=== PATIENT | female | born 1950 | race Caucasian/White ===

== ENCOUNTER 2019-07-18 13:29 | Outpatient (CLI) | payer MEDICARE, OTHER, SELFPAY ==
--- NOTE | 2019-07-18 20:14 | ONC CON_ITS ---
Dr. Rose New Patient Note Patient: Jesenia Tripathi Unit #: [id number]: [id number] Dicatated By: Laith Rose M.D.Date of Visit: Jul 18, 2019 Onc MED New Patient/Consult Referring Physician: Chief Complaint: Breast cancer. History of Present Illness: This is a 68 year-old woman with grade 1 invasive ductal carcinoma of the right breast, by clinical evaluation stage IA, ER/WA positive and HER-2/teo negative. She has multiple medical illnesses including hypertension, hyperlipidemia, peripheral arterial disease, and COPD. She had presented with an abnormal screening mammogram of the right breast. A unilateral right diagnostic mammogram with additional views of the right breast on 05/01/2019 was BI-RADS 4, suspicious. Findings included a very small persistent focal asymmetry at the upper inner right breast. Ultrasound showed a 4 mm hypoechoic lesion. Biopsy was recommended. She was referred to Dr. Brand and on 05/22/2019 she underwent ultrasound directed needle core biopsy of the right breast lesion. Pathology showed grade 1 invasive ductal carcinoma measuring 4 mm. There was no associated DCIS. The margins were noted to be free of tumor. The breast prognostic profile showed ER positive at 86% and WA positive at 47%. It was negative for overexpression of HER-2/teo, 0+ by IHC and amplification ratio by FISH of 0.9 with 1.9 HER-2 copies/cell. The Ki-67 was favorable at 9%. Given her age, underlying medical illnesses, the small size of the tumor, and the favorable prognostic and with a clinically negative axilla, she was recommended to undergo lumpectomy without axillary lymph node sampling. She then underwent right breast quandrantectomy on 06/12/2019. Pathology showed no residual tumor. Following the surgery she was seen by a medical oncologist in [place], and she was recommended to have an axillary sentinel lymph node biopsy. As she is not enthusiastic about having any additional surgery, she is being seen here for a second opinion. She has been feeling good. She says her energy is fine. She professes to have normal activity. Her ECOG score is 0. Her appetite had been down last year, during which time she had a weight loss of 60 pounds. She eventually was found to have bleeding gastric ulcer and required PRBC transfusion. She has since then improved on medical therapy. She has not had fever. She does report having some hot flashes and sweating at night. She has shortness of breath with activity. She has just a little cough which occasionally is productive of white sputum. She has not been having chest pain. She recurrently has no GI or complaints. She reports having a history of rheumatoid arthritis, and she does have some joint pain, though it is managed adequately with tramadol. She also has degenerative disease of the spine with neck and back pain. She complains that her feet hurt. She has no headache or dizziness and she has no focal neurologic symptoms. Past Medical History: Her medical history includes atrophic left kidney, chronic kidney disease, COPD, degenerative disease of the spine, history of thyroid cancer, hyperlipidemia, hypertension, peptic ulcer disease with GI bleeding, peripheral arterial disease, renal artery stenosis, and rheumatoid arthritis. Past Surgical History: She underwent ultrasound-guided core needle biopsy of the right breast on 05/22/2019 and she underwent right breast quadrantectomy on 06/22/2019. 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 Medications: Bystolic 1 Tablet (of 10 mg) Oral daily, Carafate 10 mL (of 1 g/10mL) Suspension Oral at bedtime, cloNIDine HCl 1 Tablet (of 0.1 mg) Oral t.i.d., Clopidogrel Bisulfate 1 Tablet (of 75 mg) Oral daily, Co Q 10 1 Capsule (of 100 mg) Oral daily, hydrALAZINE HCl 1 Tablet (of 50 mg) Oral t.i.d., Levothyroxine Sodium 1 Tablet (of 150 mcg) Oral daily, Magnesium 1 Tablet (of 400 mg) Oral daily, Olmesartan Medoxomil 1 Tablet (of 20 mg) Oral daily, Pantoprazole Sodium 1 Tablet (of 40 mg) Tablet, enteric coated Oral b.i.d., Potassium Chloride Qian ER 1 Tablet (of 20 meq) Tablet, controlled release Oral b.i.d., Rosuvastatin Calcium 1 Tablet (of 20 mg) Oral daily, Spironolactone 1 Tablet (of 25 mg) Oral daily, traMADol HCl 1 Tablet (of 50 mg) Oral daily Allergies: keflex Social History: Ms. Tripathi is and she is retired. She has a history of smoking 1 pack of cigarettes daily for 60 years. She does not drink alcohol. She had some alcohol use in the past, but she quit years ago. Family History: Father of stroke at age 67. Mother had heart disease and strokes and at age 83. A brother of lung cancer at age 57 and another brother of colon cancer at age 58. A brother at age 59 with a cardiac aneurysm. He also have been treated for mouth cancer. A fourth brother also had a cardiac aneurysm and of stroke. A sister with a heart aneurysm at age 58. Review Of Symptoms: Constitutional - Her energy is good. She has normal activity. She had a bleeding ulcer last year which caused her to lose 60 pounds. Her appetite is good. No fever or chills. She has hot flashes and sweating at night. ECOG score is 0, Eyes - She had a squamous cell cancer on her left eye that was removed last year. Her vision improved following the surgery, ENMT - No hearing loss or tinnitus. She occasionally has sinus drainage. No mouth sores. No sore throat or difficulty swallowing, Hematologic/Lymphatic - She bruises easily, Respiratory - She has some shortness of breath with activity. She has a cough that produces white phlegm. No pleuritic pain or hemoptysis, Cardiovascular - No angina pain. No palpitations, Gastrointestinal - No nausea or vomiting. No heartburn or acid reflux. No diarrhea or constipation. She had a bleeding ulcer last year. No blood in the stool or black stools, Genitourinary (F) - No dysuria or hematuria. No urinary frequency. No urgency or incontinence, Musculoskeletal - She has rheumatoid arthritis. She has some joint pain, particulary in her feet, and she has pain in her neck and back. It is managed pretty well with tramadol. She has cramping in her legs and feet at night when she relaxes, Integumentary - No skin complications, Neurologic - No headache or dizziness. No numbness/paresthesias or other focal neurologic symptoms, Psychiatric - No anxiety or depression. No insomnia. Vital Signs: Performed on Jul 18, 2019 14:14: 0, 24.30, 1.80 sq.m, 66.75 in, 97 %, 59 /min (LOW), 18 /min, 179/60 mm(hg) (HIGH), 98.0 F (LOW), and 154.0 lbs (HIGH). Physical Examination: Constitutional - She looks pretty good generally, Eyes - Sclerae nonicteric. Conjunctivae clear, ENMT - No lesions noted in the oral cavity, Neck - No mass or thyromegaly, Hematologic/Lymphatic - No cervical or clavicular adenopathy, Respiratory - Lungs show diminished air movement bilaterally. She has slight expiratory wheezing, Cardiovascular - Heart rhythm is regular. There is a II/ systolic no murmur which is loudest at the apex. There is no gallop or rub noted. There are bilateral carotid bruits, Breasts - The incision in the upper medial right breast appears well-healed. There are no breast masses noted. There is no axillary adenopathy, Abdomen - Soft and non-tender. Liver and spleen are not enlarged. There is no abdominal mass or ascites noted and there is no inguinal adenopathy, Back/Spine - No spine or CVA tenderness noted, Extremities - Mild edema. Dorsalis pedis pulses are palpable bilaterally, Integumentary - No rashes. No suspicious skin lesions noted, Neurologic - No focal neurologic deficits noted. Lab/Imaging: Her DEXA scan on 07/13/2019 showed osteopenia with T score -2.2 in the left femoral neck and T score -1.5 in the right femoral neck. Impression: 1. Patient with grade 1 invasive ductal carcinoma of the right breast, by clinical evaluation stage IA (T1a, N0, M0), ER/WA positive and HER-2/teo negative. 2. She underwent core needle biopsy of the right breast on 05/22/2019 followed by right breast quadrantectomy on 06/12/2019. The latter showed no residual tumor. Axillary node sampling was not recommended. Her other medical illnesses include: 3. Hypertension. 4. Hyperlipidemia. 5. Chronic kidney disease. 6. She has undergone endovascular repair of abdominal aortic aneurysm and right renal artery stent placement. 7. She has bilateral carotid bruits. 8. COPD. 9. Peptic ulcer disease wtih associated GI bleeding. 10. Rheumatoid arthritis. 11. Degenerative disease of the spine. 12. She has an atrophic left kidney. 13. She has a history of thyroid cancer. Plan: I reviewed the pathology with the patient and her . We discussed the fact that the standard initial treatment for breast cancer would include axillary lymph node sampling, but it has been pretty well accepted that in elderly patients with early stage and favorable prognostic disease, lumpectomy alone and adjuvant hormonal therapy is an acceptable alternative. Although her age really does not put her into that category, with the very small size of her primary tumor and in the context of her underlying medical illnesses, I think it is a very reasonable option for her. I also reviewed options for adjuvant hormonal therapy and their associated side effects. With her underlying vascular disease, treatment with an aromatase inhibitor would be preferable, though she is advised that it will have the potential to cause joint pain and/or osteoporosis. As she does have significant osteopenia by DEXA scan, she will require treatment for bone health. I will go ahead and have her start anastrozole 1 mg daily, and she also will be started on Prolia injections, subject to verification of insurance coverage. I will check baseline laboratory studies including CBC, comprehensive metabolic profile, and 25-hydroxy vitamin D level when she comes in for her first Prolia injection. She will then be scheduled for a 3-month interval follow-up visit. Signed By: Laith Rose M.D. <<Signature on File>>
== END 2019-07-18 13:30 | disposition home or self-care (01) ==
LOC: ONCMED 13:33
PROVIDERS: Family Provider Student in an Organized Health Care Education/Training Program; PCP Internal Medicine; Visit Provider Internal Medicine Medical Oncology
DX: C50.211 Malignant neoplasm of upper-inner quadrant of right female breast (principal); I10 Essential (primary) hypertension; E78.5 Hyperlipidemia, unspecified; I73.9 Peripheral vascular disease, unspecified; J44.9 Chronic obstructive pulmonary disease, unspecified; M06.9 Rheumatoid arthritis, unspecified; M19.90 Unspecified osteoarthritis, unspecified site; I12.9 Hypertensive chronic kidney disease with stage 1 through stage 4 chronic kidney disease, or unspecified chronic kidney disease; N18.9 Chronic kidney disease, unspecified; I70.1 Atherosclerosis of renal artery; E89.0 Postprocedural hypothyroidism; Z17.0 Estrogen receptor positive status [ER+]; Z79.811 Long term (current) use of aromatase inhibitors; Z79.899 Other long term (current) drug therapy; Z85.850 Personal history of malignant neoplasm of thyroid; Z87.11 Personal history of peptic ulcer disease; Z98.890 Other specified postprocedural states; Z85.828 Personal history of other malignant neoplasm of skin; Z87.891 Personal history of nicotine dependence
CPT/HCPCS: 99205

== ENCOUNTER 2019-08-02 13:21 | Outpatient (CLI) | payer MEDICARE, OTHER, SELFPAY ==
[2019-08-02 13:57] LABS: Basophils % 0.6 %; Eosinophils # 0.3 10^3/uL (0.0-0.8); Eosinophils % 3.9 %; Hematocrit 41.9 % (37.0-47.0); Hemoglobin 13.2 g/dL (11.5-15.3); Lymphocytes # 2.4 10^3/uL (0.8-4.8); Lymphocytes % 37.7 %; Mean Corpuscular HGB Conc 31.5 g/dL (30.0-36.0); Mean Corpuscular Hemoglobin 29.3 pg (28.0-34.0); Mean Corpuscular Volume 92.9 fL (81-99); Mean Platelet Volume 11.2 fL (7.4-10.4); Monocytes # 0.5 10^3/uL (0.2-0.9); Neutrophils # 3.1 10^3/uL (1.8-7.7); Neutrophils % 49.5 %; Nucleated Red Blood Cells % 0 %; Platelet Count 194 10^3/cmm (130-400); Red Blood Count 4.51 10^6/uL (4.1-5.3); Red Cell Distribution Width 13.9 % (12.1-15.1); White Blood Count 6.3 10^3/uL (4.0-10.0)
[2019-08-02 14:16] LABS: Alanine Aminotransferase 17 U/L (0-33); Albumin Level 3.9 g/dL (3.5-5.2); Alkaline Phosphatase 105 IU/L (35-105); Anion Gap 17.4 (5-19); Aspartate Amino Transferase 19 U/L (0-32); Blood Urea Nitrogen 19 mg/dL (8-23); Calcium 10.2 mg/dL (8.5-10.5); Carbon Dioxide 27 mmol/L (22-29); Chloride 102 mmol/L (98-107); Globulin 3.2 g/dL (1.3-4.6); Glomerular Filtration Rate 34.3 mL/min (90-130); Glucose 136 mg/dL (74-106); Potassium 4.4 mmol/L (3.5-5.1); Sodium 142 mmol/L (136-145); Total Bilirubin 0.4 mg/dL (0.15-1.2); Total Protein 7.1 g/dL (6.6-8.7)
[2019-08-02] MEDS: denosumab 60 mg SDV SUBCUT (14:25)
[2019-08-02 14:32] LABS: 25 Hydroxy Vitamin D 42 ng/mL (30-100)
== END 2019-08-02 13:22 | disposition home or self-care (01) ==
LOC: ONCMED 13:28
PROVIDERS: Family Provider Student in an Organized Health Care Education/Training Program; PCP Internal Medicine; Visit Provider Internal Medicine Medical Oncology
DX: M81.0 Age-related osteoporosis without current pathological fracture (principal); C50.211 Malignant neoplasm of upper-inner quadrant of right female breast; Z17.0 Estrogen receptor positive status [ER+]
CPT/HCPCS: 36415; 80053; 82306; 85025; 96372; J0897

== ENCOUNTER 2020-01-31 12:18 | Outpatient (CLI) | payer MEDICARE, OTHER, SELFPAY ==
[2020-01-31 12:52] LABS: Basophils % 0.5 %; Eosinophils # 0.4 10^3/uL (0.0-0.8); Hematocrit 44.2 % (37.0-47.0); Lymphocytes # 2.6 10^3/uL (0.8-4.8); Lymphocytes % 34.5 %; Mean Corpuscular HGB Conc 31.7 g/dL (30.0-36.0); Mean Corpuscular Hemoglobin 30.4 pg (28.0-34.0); Mean Corpuscular Volume 95.9 fL (81-99); Mean Platelet Volume 11.1 fL (7.4-10.4); Monocytes # 0.6 10^3/uL (0.2-0.9); Monocytes % 7.4 %; Neutrophils # 3.94 10^3/uL (1.8-7.7); Neutrophils % 52.3 %; Nucleated Red Blood Cells % 0 %; Platelet Count 167 10^3/cmm (130-400); Red Blood Count 4.61 10^6/uL (4.1-5.3); Red Cell Distribution Width 13.8 % (12.1-15.1); White Blood Count 7.5 10^3/uL (4.0-10.0)
[2020-01-31 13:26] LABS: 25 Hydroxy Vitamin D 50 ng/mL (30-100); Alanine Aminotransferase 17 U/L (0-33); Albumin Level 4.4 g/dL (3.5-5.2); Alkaline Phosphatase 68 IU/L (35-105); Anion Gap 14.4 (5-19); Aspartate Amino Transferase 21 U/L (0-32); Blood Urea Nitrogen 22 mg/dL (8-23); Calcium 9.5 mg/dL (8.5-10.5); Carbon Dioxide 26 mmol/L (22-29); Chloride 104 mmol/L (98-107); Globulin 2.9 g/dL (1.3-4.6); Glucose 119 mg/dL (65-115); Osmolality Calculated 288 mOsm/kg (285-295); Potassium 4.4 mmol/L (3.5-5.1); Sodium 140 mmol/L (136-145); Total Bilirubin 0.5 mg/dL (0.15-1.2); Total Protein 7.3 g/dL (6.6-8.7)
--- NOTE | 2020-02-06 16:32 | ONC FU_ITS ---
[facility] Patient Note Patient: Jesenia Tripathi Unit #: [id number]: [id number] Dictated By: Orin CotaDate of Visit: Jan 31, 2020 Onc MED Follow-Up/Prog Note Chief Complaint: Breast cancer. History of Present Illness: Mrs Tripathi is a 69 year-old woman with grade 1 invasive ductal carcinoma of the right breast, by clinical evaluation stage IA, ER/OR positive and HER-2/teo negative. She has multiple medical illnesses including hypertension, hyperlipidemia, peripheral arterial disease, and COPD. She had presented with an abnormal screening mammogram of the right breast. A unilateral right diagnostic mammogram with additional views of the right breast on 05/01/2019 was BI-RADS 4, suspicious. Findings included a very small persistent focal asymmetry at the upper inner right breast. Ultrasound showed a 4 mm hypoechoic lesion. Biopsy was recommended. She was referred to Dr. Brand and on 05/22/2019 she underwent ultrasound directed needle core biopsy of the right breast lesion. Pathology showed grade 1 invasive ductal carcinoma measuring 4 mm. There was no associated DCIS. The margins were noted to be free of tumor. The breast prognostic profile showed ER positive at 86% and OR positive at 47%. It was negative for overexpression of HER-2/teo, 0+ by IHC and amplification ratio by FISH of 0.9 with 1.9 HER-2 copies/cell. The Ki-67 was favorable at 9%. Given her age, underlying medical illnesses, the small size of the tumor, and the favorable prognostic and with a clinically negative axilla, she was recommended to undergo lumpectomy without axillary lymph node sampling. She then underwent right breast quandrantectomy on 06/12/2019. Pathology showed no residual tumor. Following the surgery she was seen by a medical oncologist in [place], and she was recommended to have an axillary sentinel lymph node biopsy. As she is not enthusiastic about having any additional surgery, she is being seen here for a second opinion. Her appetite had been down last year, during which time she had a weight loss of 60 pounds. She eventually was found to have bleeding gastric ulcer and required PRBC transfusion. She has since then improved on medical therapy. Mrs Tripathi is here today for followup. Mrs Tripathi as seen by Dr Rose in July 2019 and was given Prolia 60 mg at that time for osteopenia based on a bone density scan from [facility] on July 16, 2019. It reported femoral neck osteopenia with an average bone mineral density at the left femoral neck at -2.2 of the T score right femoral neck was -1.5 on the T score. The Prolia was given for the osteopenia. She also started anastrozole 1 mg daily. Ms. Tripathi is here today for follow-up. She states overall she is doing ok. She is having some hot flashes and joint pain from the Aromasin but states the joint pain is tolerable. However she states she has had leg/bone pain that is different from the joint pain and significant fatigue over the last several months. She states she still able to do all things she wants to do but is has to rest frequently. She has taken intermittent [id number] pain meds for her leg pain states it helps some but does not relieve the pain completely. She states she is noticed over the last few weeks areas seem to get somewhat better. She denies any fever or chills. She has had no mouth sores sore throat or difficulty swallowing. She denies any new breast concerns. She denies any nausea or vomiting. She denies diarrhea or constipation. She has had no lower extremity edema. Other than the leg pain in the generalized joint pain she denies any other pain. She is had no vision changes. She states other than the bone and joint pain she feels that she is doing extremely well. She does not want to stop the anastrozole at this point because she states the joint pain is tolerable. Her ECOG is 0. Past Medical History: Atrophic left kidney Chronic kidney disease COPD Degenerative disease of the spine History of thyroid cancer Hyperlipidemia Hypertension Peptic ulcer disease with GI bleeding Peripheral arterial disease Renal artery stenosis Rheumatoid arthritis Past Surgical History: Low back surgery in 2004 and in 2010 Total thyroidectomy in 2006 followed by radioactive iodine ablation x 2 Ight breast quadrantectomy in 2019 Ultrasound-guided core needle biopsy of the right breast in 2019 Excision of squamous cell carcinoma from the left eye in 2019 Endovascular repair of abdominal aortic aneurysm and right renal artery stent placement in 2014 Excision of squamous cell skin cancer from the left hand x 2 in 2005 Left great toe surgery in 1997 Tonsillectomy in 1969 Allergies: keflex Medications: Bystolic 1 Tablet (of 10 mg) Oral daily cloNIDine HCl 1 Tablet (of 0.1 mg) Oral t.i.d. Clopidogrel Bisulfate 1 Tablet (of 75 mg) Oral daily Co Q 10 1 Capsule (of 100 mg) Oral daily Fluoroplex 1 Each (of 1 %) Cream Topical b.i.d. PRN hydrALAZINE HCl 1 Tablet (of 50 mg) Oral t.i.d. Levothyroxine Sodium 1 Tablet (of 125 mcg) Oral daily Magnesium 1 Tablet (of 400 mg) Oral daily Olmesartan Medoxomil 1 Tablet (of 20 mg) Oral daily Pantoprazole Sodium 1 Tablet (of 40 mg) Tablet, enteric coated Oral daily Potassium Chloride Qian ER 1 Tablet (of 20 meq) Tablet, controlled release Oral b.i.d. Rosuvastatin Calcium 1 Tablet (of 20 mg) Oral daily Spironolactone 1 Tablet (of 25 mg) Oral daily traMADol HCl 1 Tablet (of 50 mg) Oral daily Family History: Ms. Tripathi's mother at age 83: stroke. Ms. Tripathi's father at age 67: stroke. Ms. Tripathi has 4 brothers: 4 . Ms. Tripathi's first brother's stroke. Another brother's heart aneurysm. Another brother's lung cancer. Another brother's colon cancer. She has 1 sister who is : aneurysm. Father of stroke at age 67. Mother had heart disease and strokes and at age 83. A brother of lung cancer at age 57 and another brother of colon cancer at age 58. A brother at age 59 with a cardiac aneurysm. He also have been treated for mouth cancer. A fourth brother also had a cardiac aneurysm and of stroke. A sister with a heart aneurysm at age 58. Social History: Ms. Tripathi is and she is retired. She is an occasional smoker who has smoked 1.0 pack/day for 60 years. She is a former drinker. She has a history of smoking 1 pack of cigarettes daily for 60 years. She does not drink alcohol. She had some alcohol use in the past, but she quit years ago. Review Of Symptoms: Constitutional Denies fevers, chills, night sweats, excessive fatigue or weight loss. Some hot flashes with anastrozole. Allergic/Immunologic No reactions. Eyes Denies significant visual changes. No diplopia. No amaurosis. ENMT Denies changes in hearing, sore throat, mouth sores, difficulty or changes in swallowing ability, and/or sinus drainage. Hematologic/Lymphatic Denies easy bruising or bleeding. The patient denies any tender or palpable lymph nodes. Breasts no concerns Respiratory Denies dyspnea on exertion, chest pain, cough or hemoptysis. Denies orthopnea. Cardiovascular Denies anginal chest pain, palpitations or orthopnea. Gastrointestinal Denies nausea, vomiting, diarrhea, GI bleeding, or constipation. Denies change in bowel habits and/or stool color, no heartburn or early satiety. Genitourinary (F) No hematuria, hesitancy, incontinence, vaginal bleeding, discharge or other problems with urination. Musculoskeletal Denies swelling or redness. No decreased range of motion. Joint and bone pain-see above. Integumentary Denies chronic rashes, inflammation, ulcerations or skin changes. Neurologic Denies headache, blurred vision, and no areas of focal weakness or numbness. Normal gait. No sensory problems. Psychiatric Denies insomnia, depression, moshe or mood swings. Vital Signs: Performed on Jan 31, 2020 14:29 Height - 66.75 in Weight - 164.6 lbs (HIGH) BSA - 1.86 sq.m BMI - 25.97 Temperature - 97.9 F (LOW) Pulse - 68 /min Respiration - 18 /min BP - 164/84 mm(hg) (HIGH) O2 Sat - 92 % (LOW) Pain - 0,0 - Fully active, able to carry on all predisease activities without restrictions. (ECOG) Physical Examination: Constitutional Alert, oriented, no acute distress. Skin pink, warm and dry. Head Normocephalic; atraumatic. Eyes Conjunctivae and sclerae are clear and without icterus. Pupils are reactive and equal. Neck Supple without masses or thyromegaly. No jugular venous distension. Hematologic/Lymphatic No petechiae or purpura. No tender or palpable lymph nodes in the cervical or supraclavicular areas. Respiratory Lungs are clear to auscultation without rhonchi or wheezing. Cardiovascular Regular rate and rhythm of heart without murmurs,clicks, gallops or rubs. Abdomen Non-tender, non-distended, no masses or ascites. Back/Spine Non-tender to palpation. Extremities No visible deformities, no cyanosis, clubbing or edema. Musculoskeletal No tenderness or swelling, normal range of motion without obvious weakness. Integumentary No rashes or lesions. Neurologic No sensory or motor deficits, normal cerebellar function, normal gait. Psychiatric Alert and oriented times three. Coherent speech. Verbalizes understanding of our discussions today. Laboratory:Test performed on Jan 31, 2020 12:28 Sodium 140 mmol/L Vitamin D (25-Hydroxy), Total 50 ng/mL Potassium 4.4 mmol/L Chloride 104 mmol/L CO2 26 mmol/L Anion Gap 14.4 BUN 22 mg/dL Creatinine 1.4 mg/dL Cr Clearance (Est) 43.44 mL/min Glucose 119 mg/dL Calcium 9.5 mg/dL Protein, Total 7.3 g/dL Albumin 4.4 g/dL Globulin 2.9 g/dL Bilirubin, Total 0.5 mg/dL ALT (SGPT) 17 U/L AST (SGOT) 21 U/L Alkaline Phosphatase 68 IU/L WBC 7.5 10 3/uL RBC 4.61 10 6/uL HGB 14.0 g/dL HCT 44.2 % MCV 95.9 fL MCH 30.4 pg MCHC 31.7 g/dL RDW 13.8 % Platelet Count 167 10 3/cmm MPV 11.1 fL Neutrophils 3.94 10 3/uL Lymphocytes 2.6 10 3/uL Monocytes 0.6 10 3/uL Eosinophils 0.4 10 3/uL Basophils 0.0 10 3/uL Neutrophil % 52.3 % Lymphocyte % 34.5 % Monocyte % 7.4 % Eosinophil % 5.0 % Basophils % 0.5 % NRBC % 0 % Impression: 1. Patient with grade 1 invasive ductal carcinoma of the right breast, by clinical evaluation stage IA (T1a, N0, M0), ER/OR positive and HER-2/teo negative. 2. She underwent core needle biopsy of the right breast on 05/22/2019 followed by right breast quadrantectomy on 06/12/2019. The latter showed no residual tumor. Axillary node sampling was not recommended. Her other medical illnesses include: 3. Hypertension. 4. Hyperlipidemia. 5. Chronic kidney disease. 6. She has undergone endovascular repair of abdominal aortic aneurysm and right renal artery stent placement. 7. She has bilateral carotid bruits. 8. COPD. 9. Peptic ulcer disease wtih associated GI bleeding. 10. Rheumatoid arthritis. 11. Degenerative disease of the spine. 12. She has an atrophic left kidney. 13. She has a history of thyroid cancer. Dr Rose reviewed the pathology with the patient and her . He discussed the fact that the standard initial treatment for breast cancer would include axillary lymph node sampling, but it has been pretty well accepted that in elderly patients with early stage and favorable prognostic disease, lumpectomy alone and adjuvant hormonal therapy is an acceptable alternative. Although her age really does not put her into that category, with the very small size of her primary tumor and in the context of her underlying medical illnesses, Dr Rose decided it was a very reasonable option for her. She began anastrozole 1 mg daily in July 2019. She was given Prolia on 08/02/2019 for osteopenia and high risk medication in the anastrozole as it can worsen the osteopenia. She is here today for 6 month followup and consideration of her Prolia. Plan: 1. Continue anastrozole 1 mg daily. Will need to watch joint pain and hot flashes. 2. She states she does not feel they are bad enough to warrant any medication changes at this time. 3. She is willing to stop the Prolia for now. She states she really feels that this is what is causing her leg/bone pain. She states she is aware of increased risk of osteopenia worsening due to the aromatase inhibitor. However she states the bone pain in her leg and hip area are worse than the pain she felt was coming from the aromatase inhibitor. I have asked her to stop the Prolia for now. She states she thinks she is feeling some better in regards to the bone/joint pain over the last week or 2. Her calcium and vitamin D levels are normal. She is very active in that she does a lot of walking and weightbearing exercise. 4. Labs from today were reviewed in detail discussed with Ms. Tripathi and a copy was given to her. WBC 7.5, hemoglobin is 14, platelets 167,000 neutrophils are 3900. Potassium 4.4 creatinine 1.4 which is improved from July 04 0.5. LFTs are normal alk phos is normal at 68 vitamin D level is 50. 5. We will plan to see her back in 6 months with CBC CMP. We can revisit the Prolia at that time as she will have adequate time to evaluate how she is feeling on the aromatase inhibitor. 6. Ms. Tripathi was instructed to contact us in the interim should questions or problems arise. She was encouraged to let us know if her joint pain or hot flashes worsen to the point where she feels we will change medication or she wants them treated. Signed By: Orin Cota-, AOCNP Laith Rose MD <<Signature on File>>
== END 2020-01-31 12:19 | disposition home or self-care (01) ==
PROVIDERS: PCP Student in an Organized Health Care Education/Training Program; Visit Provider Nurse Practitioner
DX: C50.211 Malignant neoplasm of upper-inner quadrant of right female breast (principal); I10 Essential (primary) hypertension; E78.5 Hyperlipidemia, unspecified; I12.9 Hypertensive chronic kidney disease with stage 1 through stage 4 chronic kidney disease, or unspecified chronic kidney disease; N18.9 Chronic kidney disease, unspecified; J44.9 Chronic obstructive pulmonary disease, unspecified; Z17.0 Estrogen receptor positive status [ER+]; K27.4 Chronic or unspecified peptic ulcer, site unspecified, with hemorrhage; R01.1 Cardiac murmur, unspecified; M48.9 Spondylopathy, unspecified; M06.9 Rheumatoid arthritis, unspecified; M85.80 Other specified disorders of bone density and structure, unspecified site; Z95.828 Presence of other vascular implants and grafts; Z85.850 Personal history of malignant neoplasm of thyroid; Z79.811 Long term (current) use of aromatase inhibitors
CPT/HCPCS: 80053; 82306; 85025; 99214

== ENCOUNTER 2020-07-31 11:04 | Outpatient (CLI) | payer MEDICARE, OTHER, SELFPAY ==
[2020-07-31 11:55] LABS: Basophils % 0.5 %; Eosinophils # 0.2 10^3/uL (0.0-0.8); Hematocrit 35.7 % (37.0-47.0); Hemoglobin 10.8 g/dL (11.5-15.3); Lymphocytes # 1.8 10^3/uL (0.8-4.8); Lymphocytes % 25.2 %; Mean Corpuscular HGB Conc 30.3 g/dL (30.0-36.0); Mean Corpuscular Hemoglobin 28.6 pg (28.0-34.0); Mean Corpuscular Volume 94.4 fL (81-99); Mean Platelet Volume 10.9 fL (7.4-10.4); Monocytes # 0.5 10^3/uL (0.2-0.9); Monocytes % 6.6 %; Neutrophils # 4.71 10^3/uL (1.8-7.7); Neutrophils % 64.4 %; Nucleated Red Blood Cells % 0 %; Platelet Count 231 10^3/cmm (130-400); Red Blood Count 3.78 10^6/uL (4.1-5.3); White Blood Count 7.3 10^3/uL (4.0-10.0)
[2020-07-31 12:25] LABS: Alanine Aminotransferase 13 U/L (0-33); Albumin Level 4.1 g/dL (3.5-5.2); Alkaline Phosphatase 85 IU/L (35-105); Anion Gap 12.2 (5-19); Aspartate Amino Transferase 17 U/L (0-32); Blood Urea Nitrogen 19 mg/dL (8-23); Carbon Dioxide 28 mmol/L (22-29); Chloride 104 mmol/L (98-107); Globulin 2.7 g/dL (1.3-4.6); Glucose 111 mg/dL (65-115); Osmolality Calculated 293 mOsm/kg (285-295); Potassium 4.2 mmol/L (3.5-5.1); Sodium 140 mmol/L (136-145); Total Bilirubin 0.3 mg/dL (0.15-1.2); Total Protein 6.8 g/dL (6.6-8.7)
[2020-07-31 14:14] LABS: Iron 24 ug/dL (37-145); Percent Saturation 6.1 % (20-50); Total Iron Binding Capacity 392 mcg/dl; Unsaturated Iron Binding 368 ug/dL (112-347)
[2020-07-31 14:30] LABS: Vitamin B12 411 pg/mL (232-1245)
--- NOTE | 2020-07-31 18:31 | ONC FU_ITS ---
Dr. Rose Patient Follow-Up Note Patient: Jesenia Tripathi Unit #: [id number]: 1950 Dicatated By: Laith Rose M.D.Date of Visit:Jul 31, 2020 Onc Med Follow-up/Prog Note Chief Complaint: Breast cancer. History of Present Illness: This is a 69 year-old woman with grade 1 invasive ductal carcinoma of the right breast, by clinical evaluation stage IA, ER/ID positive and HER-2/teo negative. She had presented with an abnormal screening mammogram of the right breast. A unilateral right diagnostic mammogram with additional views of the right breast on 05/01/2019 was BI-RADS 4, suspicious. Findings included a very small persistent focal asymmetry at the upper inner right breast. Ultrasound showed a 4 mm hypoechoic lesion. Biopsy was recommended. She was referred to Dr. Brand and on 05/22/2019 she underwent ultrasound directed needle core biopsy of the right breast lesion. Pathology showed grade 1 invasive ductal carcinoma measuring 4 mm. There was no associated DCIS. The margins were noted to be free of tumor. The breast prognostic profile showed ER positive at 86% and ID positive at 47%. It was negative for overexpression of HER-2/teo, 0+ by IHC and amplification ratio by FISH of 0.9 with 1.9 HER-2 copies/cell. The Ki-67 was favorable at 9%. Given her age, underlying medical illnesses, the small size of the tumor, and the favorable prognostic and with a clinically negative axilla, she was recommended to undergo lumpectomy without axillary lymph node sampling. She then underwent right breast quandrantectomy on 06/12/2019. Pathology showed no residual tumor. Following the surgery she was seen by a medical oncologist in [place], and she was recommended to have an axillary sentinel lymph node biopsy. As she was not enthusiastic about having any additional surgery, she was seen here for a second opinion. I had seen her initially on 07/18/2019. She was advised that an axillary sentinel lymph node biopsy would be considered standard of care, but in view of the very small size of her primary tumor, I felt that it was acceptable to limit her further treatment to adjuvant hormonal therapy with an aromatase inhibitor, and she then began treatment with anastrozole 1 mg daily. As she did have underlying osteopenia by DEXA scan, she also started treatment with Prolia for bone health. Her other medical illnesses including hypertension, hyperlipidemia, peripheral arterial disease, chronic kidney disease, COPD, degenerative arthritis, and rheumatoid arthritis. She has a history of peptic ulcer disease with associated GI bleeding, and she is known to have an atrophic left kidney. She has undergone endovascular repair of abdominal aortic aneurysm and right renal artery stent placement, and she has a history of thyroid cancer. She has a history of smoking 1 pack of cigarettes daily for 60 years. She is seen for a follow-up visit. She indicates that she was diagnosed with COVID-19 virus infection in May 2020. She had only mild illness, but her came severely ill and . She is still in the process of dealing with that emotionally. Her energy is otherwise been okay, and she does have normal activity. ECOG score is 0. She says she makes herself eat. She does not have fever, night sweats, or hot flashes. She does have some cough, attributable to smoking. She does not complain of shortness of breath or chest pain. She occasionally has nausea. She also was having acid symptoms again, and she restarted her PPI. Bowel and bladder function have been okay. She has joint pain, mainly in her hands and feet, which is about the same. Lately she has also been having joint pain in her hips. She has no focal neurologic symptoms. Medications: Bystolic 1 Tablet (of 10 mg) Oral daily, cloNIDine HCl 1 Tablet (of 0.1 mg) Oral t.i.d., Clopidogrel Bisulfate 1 Tablet (of 75 mg) Oral daily, Co Q 10 1 Capsule (of 100 mg) Oral daily, Fluoroplex 1 Each (of 1 %) Cream Topical b.i.d. PRN, hydrALAZINE HCl 1 Tablet (of 50 mg) Oral t.i.d., Levothyroxine Sodium 1 Tablet (of 125 mcg) Oral daily, Magnesium 1 Tablet (of 400 mg) Oral daily, Olmesartan Medoxomil 1 Tablet (of 20 mg) Oral daily, Pantoprazole Sodium 1 Tablet (of 40 mg) Tablet, enteric coated Oral daily, Potassium Chloride Qian ER 1 Tablet (of 20 meq) Tablet, controlled release Oral b.i.d., Rosuvastatin Calcium 1 Tablet (of 20 mg) Oral daily, Spironolactone 1 Tablet (of 25 mg) Oral daily, traMADol HCl 1 Tablet (of 50 mg) Oral daily Allergies: keflex Vital Signs: Performed on Jul 31, 2020 13:04 Height - 66.75 in Weight - 160 lbs (LOW) BSA - 1.83 sq.m BMI - 25.25 Temperature - 97.2 F (LOW) Pulse - 64 /min Respiration - 17 /min BP - 149/68 mm(hg) (HIGH) O2 Sat - 99 % Pain - 0 Physical Examination: Constitutional - She looks pretty good generally, Eyes - Sclerae nonicteric. Conjunctivae clear, ENMT - No lesions noted in the oral cavity, Hematologic/Lymphatic - No cervical, clavicular, or axillary adenopathy, Respiratory - Lungs sound clear with diminished air movement bilaterally, Cardiovascular - Heart rhythm is regular. There is a II/ systolic no murmur. There is no gallop or rub noted, Abdomen - Soft. Liver and spleen are not enlarged. There is no abdominal mass or ascites noted and there is no inguinal adenopathy, Extremities - Slight edema, Neurologic - No focal neurologic deficits noted. Lab/Imaging: Test performed on Jul 31, 2020 11:31 Sodium 140 mmol/L Potassium 4.2 mmol/L Chloride 104 mmol/L CO2 28 mmol/L Anion Gap 12.2 BUN 19 mg/dL Creatinine 1.2 mg/dL Cr Clearance (Est) 49.27 mL/min Glucose 111 mg/dL Osmolality - Calculated 293 mOsm/kg Calcium 10.0 mg/dL Protein, Total 6.8 g/dL Albumin 4.1 g/dL Globulin 2.7 g/dL Bilirubin, Total 0.3 mg/dL ALT (SGPT) 13 U/L AST (SGOT) 17 U/L Alkaline Phosphatase 85 IU/L WBC 7.3 10 3/uL RBC 3.78 10 6/uL HGB 10.8 g/dL HCT 35.7 % MCV 94.4 fL MCH 28.6 pg MCHC 30.3 g/dL RDW 14.0 % Platelet Count 231 10 3/cmm MPV 10.9 fL Neutrophils 4.71 10 3/uL Lymphocytes 1.8 10 3/uL Monocytes 0.5 10 3/uL Eosinophils 0.2 10 3/uL Basophils 0.0 10 3/uL Neutrophil % 64.4 % Lymphocyte % 25.2 % Monocyte % 6.6 % Eosinophil % 3.0 % Basophils % 0.5 % NRBC % 0 % Problem List: 1. Grade 1 invasive ductal carcinoma of the right breast, by clinical evaluation stage IA (T1a, N0, M0), ER/ID positive and HER-2/teo negative. 2. She underwent core needle biopsy of the right breast on 05/22/2019 followed by right breast quadrantectomy on 06/12/2019. The latter showed no residual tumor. She delcined axillary node sampling. Due to the small size of her primary tumor, her further treatment was limited to adjuvant hormonal therapy with anastrozole. 3. Hypertension. 4. Hyperlipidemia. 5. Chronic kidney disease. 6. She has undergone endovascular repair of abdominal aortic aneurysm and right renal artery stent placement. 7. She has bilateral carotid bruits. 8. COPD. 9. Peptic ulcer disease wtih associated GI bleeding. 10. Rheumatoid arthritis. 11. Degenerative disease of the spine. 12. She has an atrophic left kidney. 13. She has a history of thyroid cancer. 14. She was given Prolia on 08/02/2019 for osteopenia. She tolerated it poorly. Problems Addressed with this Encounter and Plan: 1. Grade 1 invasive ductal carcinoma of the right breast, by clinical evaluation stage IA (T1a, N0, M0), ER/ID positive and HER-2/teo negative. She underwent core needle biopsy of the right breast on 05/22/2019 followed by right breast quadrantectomy on 06/12/2019. She delcined axillary node sampling. Due to the small size of her primary tumor, her further treatment was limited to adjuvant hormonal therapy with anastrozole 1 mg daily. During follow-up she has had some increase in joint pain, mainly in the hips. It is uncertain to what extent that may be due to the anastrozole, but thus far it does appear to be tolerable, and she will continue the anastrozole at 1 mg daily. I will see her again in 6 months. However, in the meantime, she is to let us know if her joint pain is getting worse. 2. Anemia. This is most likely related to her underlying peptic acid disease, for which she recently restarted her PPI. I will check serum iron studies and B12 level. She will have further evaluation/management as indicated. 3. Osteopenia. She had poor tolerance for Prolia. It will require ongoing monitoring due to the aromatase inhibitor therapy. Signed By: Laith Rose M.D. <<Signature on File>>
== END 2020-07-31 11:05 | disposition home or self-care (01) ==
LOC: ONCMED 11:08
PROVIDERS: PCP Student in an Organized Health Care Education/Training Program; Visit Provider Internal Medicine Medical Oncology
DX: C50.211 Malignant neoplasm of upper-inner quadrant of right female breast (principal); Z17.0 Estrogen receptor positive status [ER+]; D64.9 Anemia, unspecified; K30 Functional dyspepsia; M85.80 Other specified disorders of bone density and structure, unspecified site; M25.552 Pain in left hip; M25.551 Pain in right hip; Z79.811 Long term (current) use of aromatase inhibitors
CPT/HCPCS: 36415; 80053; 82607; 83540; 83550; 85025; 99214

== ENCOUNTER 2021-02-23 14:13 | Outpatient (CLI) | payer MEDICARE, OTHER, SELFPAY ==
[2021-02-23 15:44] LABS: Basophils % 0.7 %; Eosinophils # 0.3 10^3/uL (0.0-0.8); Eosinophils % 4.3 %; Hemoglobin 12.7 g/dL (11.5-15.3); Lymphocytes % 33.6 %; Mean Corpuscular HGB Conc 30.2 g/dL (30.0-36.0); Mean Corpuscular Hemoglobin 28.3 pg (28.0-34.0); Mean Corpuscular Volume 93.5 fl (81-99); Mean Platelet Volume 11.2 fL (7.4-10.4); Monocytes # 0.4 10^3/uL (0.2-0.9); Monocytes % 6.9 %; Neutrophils # 3.17 10^3/uL (1.8-7.7); Neutrophils % 54.3 %; Nucleated Red Blood Cells % 0 %; Platelet Count 182 10^3/cmm (130-400); Red Blood Count 4.49 10^6/uL (4.1-5.3); Red Cell Distribution Width 14.2 % (12.1-15.1); White Blood Count 5.8 10^3/uL (4.0-10.0)
[2021-02-23 16:25] LABS: Iron 88 ug/dL (37-145); Percent Saturation 23.8 % (20-50); Total Iron Binding Capacity 369 mcg/dl; Unsaturated Iron Binding 281 ug/dL (112-347)
--- NOTE | 2021-02-25 05:36 | ONC FU_ITS ---
Dr. Rose Patient Follow-Up Note Patient: Jesenia Tripathi Unit #: [id number]: 1950 Dicatated By: Laith Rose M.D.Date of Visit:Feb 23, 2021 Onc Med Follow-up/Prog Note Chief Complaint: Breast cancer. History of Present Illness: This is a 70 year-old woman with grade 1 invasive ductal carcinoma of the right breast, by clinical evaluation stage IA, ER/ND positive and HER-2/teo negative. She had presented with an abnormal screening mammogram of the right breast. A unilateral right diagnostic mammogram with additional views of the right breast on 05/01/2019 was BI-RADS 4, suspicious. Findings included a very small persistent focal asymmetry at the upper inner right breast. Ultrasound showed a 4 mm hypoechoic lesion. Biopsy was recommended. She was referred to Dr. Brand and on 05/22/2019 she underwent ultrasound directed needle core biopsy of the right breast lesion. Pathology showed grade 1 invasive ductal carcinoma measuring 4 mm. There was no associated DCIS. The margins were noted to be free of tumor. The breast prognostic profile showed ER positive at 86% and ND positive at 47%. It was negative for overexpression of HER-2/teo, 0+ by IHC and amplification ratio by FISH of 0.9 with 1.9 HER-2 copies/cell. The Ki-67 was favorable at 9%. Given her age, underlying medical illnesses, the small size of the tumor, and the favorable prognostic and with a clinically negative axilla, she was recommended to undergo lumpectomy without axillary lymph node sampling. She then underwent right breast quandrantectomy on 06/12/2019. Pathology showed no residual tumor. Following the surgery she was seen by a medical oncologist in [place], and she was recommended to have an axillary sentinel lymph node biopsy. As she was not enthusiastic about having any additional surgery, she was seen here for a second opinion. I had seen her initially on 07/18/2019. She was advised that an axillary sentinel lymph node biopsy would be considered standard of care, but in view of the very small size of her primary tumor, I felt that it was acceptable to limit her further treatment to adjuvant hormonal therapy with an aromatase inhibitor, and she then began treatment with anastrozole 1 mg daily. As she did have underlying osteopenia by DEXA scan, she also started treatment with Prolia for bone health. Her other medical illnesses including hypertension, hyperlipidemia, peripheral arterial disease, chronic kidney disease, COPD, degenerative arthritis, and rheumatoid arthritis. She has a history of peptic ulcer disease with associated GI bleeding, and she is known to have an atrophic left kidney. She has undergone endovascular repair of abdominal aortic aneurysm and right renal artery stent placement, and she has a history of thyroid cancer. She was diagnosed with COVID-19 virus infection in May 2020. She has a history of smoking 1 pack of cigarettes daily for 60 years. She is seen for a follow-up visit. She has been feeling pretty good generally. Her energy has been okay. She has normal activity. ECOG score is 0. Her appetite has been good. She has not had fever. She does not complain of hot flashes or night sweating. She has quite a bit of sinus drainage. She also has cough and she sometimes has shortness of breath. She is still smoking, less than 1 pack of cigarettes daily. She does not complain of chest pain. She was having acid reflux symptoms, but that has improved on medication. She has no other GI or complaints. She has joint pain, mainly in her back and hips. It bothers her mainly when she first gets up in the morning, and it gradually gets better during the day. She says that she has had arthritis all her life. It may have gotten a little worse since she has been on the anastrozole, but not very much. She does not complain of headache or dizziness. She has some numbness/tingling, but no more than usual. Medications: Anastrozole (1 mg) Oral daily, Bystolic 1 Tablet (of 10 mg) Oral daily, Centrum Silver 1 Tablet Oral daily, Clopidogrel Bisulfate 1 Tablet (of 75 mg) Oral daily, Co Q 10 1 Capsule (of 100 mg) Oral daily, Levothyroxine Sodium 1 Tablet (of 112 mcg) Oral daily, Magnesium 1 Tablet (of 400 mg) Oral daily, Olmesartan Medoxomil 1 Tablet (of 20 mg) Oral daily, Potassium Chloride Qian ER 1 Tablet (of 20 meq) Tablet, controlled release Oral b.i.d., Rosuvastatin Calcium 1 Tablet (of 20 mg) Oral daily, Spironolactone 1 Tablet (of 25 mg) Oral daily, traMADol HCl 1 Tablet (of 50 mg) Oral daily Allergies: keflex Vital Signs: Performed on Feb 23, 2021 16:12 Height - 66.75 in Weight - 152.4 lbs (LOW) BSA - 1.80 sq.m BMI - 24.05 Temperature - 97.8 F (LOW) Pulse - 58 /min (LOW) Respiration - 18 /min BP - 182/75 mm(hg) (HIGH) O2 Sat - 95 % (LOW) Pain - 0 Fatigue - 0 Physical Examination: Constitutional - She looks pretty good generally, Eyes - Sclerae nonicteric. Conjunctivae clear, ENMT - No lesions noted in the oral cavity, Hematologic/Lymphatic - No cervical, clavicular, or axillary adenopathy, Respiratory - Lungs sound clear with diminished air movement bilaterally, Cardiovascular - Heart rhythm is regular. There is a II/ systolic no murmur. There is no gallop or rub noted, Abdomen - Soft. Liver and spleen are not enlarged. There is no abdominal mass or ascites noted and there is no inguinal adenopathy, Extremities - No edema, Neurologic - No focal neurologic deficits noted. Lab/Imaging: Test performed on Feb 23, 2021 15:20 Iron 88 mcg/dL Iron Binding Capacity (TIBC) 369 mcg/dl % Iron Saturation 23.8 % UIBC 281 mcg/dL WBC 5.8 10 3/uL RBC 4.49 10 6/uL HGB 12.7 g/dL HCT 42.0 % MCV 93.5 fl MCH 28.3 pg MCHC 30.2 g/dL RDW 14.2 % Platelet Count 182 10 3/cmm MPV 11.2 fL Neutrophils 3.17 10 3/uL Lymphocytes 2.0 10 3/uL Monocytes 0.4 10 3/uL Eosinophils 0.3 10 3/uL Basophils 0.0 10 3/uL Neutrophil % 54.3 % Lymphocyte % 33.6 % Monocyte % 6.9 % Eosinophil % 4.3 % Basophils % 0.7 % NRBC % 0 % Problem List: 1. Grade 1 invasive ductal carcinoma of the right breast, by clinical evaluation stage IA (T1a, N0, M0), ER/ND positive and HER-2/teo negative. 2. She underwent core needle biopsy of the right breast on 05/22/2019 followed by right breast quadrantectomy on 06/12/2019. The latter showed no residual tumor. She delcined axillary node sampling. Due to the small size of her primary tumor, her further treatment was limited to adjuvant hormonal therapy with anastrozole. 3. Hypertension. 4. Hyperlipidemia. 5. Chronic kidney disease. 6. She has undergone endovascular repair of abdominal aortic aneurysm and right renal artery stent placement. 7. She has bilateral carotid bruits. 8. COPD. 9. Peptic ulcer disease wtih associated GI bleeding. 10. Rheumatoid arthritis. 11. Degenerative disease of the spine. 12. She has an atrophic left kidney. 13. She has a history of thyroid cancer. 14. She was given Prolia on 08/02/2019 for osteopenia. She tolerated it poorly. Problems Addressed with this Encounter and Plan: 1. Patient with grade 1 invasive ductal carcinoma of the right breast, by clinical evaluation stage IA (T1a, N0, M0), ER/ND positive and HER-2/teo negative. She underwent core needle biopsy of the right breast on 05/22/2019 followed by right breast quadrantectomy on 06/12/2019. She delcined axillary node sampling. Due to the small size of her primary tumor, her further treatment was limited to adjuvant hormonal therapy with anastrozole 1 mg daily. During follow-up she has had some increase in joint pain, mainly in the lower back and hips. It may have gotten a little worse since she started the anastrozole, but not a lot. Overall, she continues to tolerate it with acceptable toxicity. Thus far there has been no evidence of recurrence of the breast cancer. As such, she will continue the anastrozole at 1 mg daily. I will see her again in 6 months. In the meantime, her surveillance mammograms will be due in June, and those will be scheduled now. 2. Osteopenia. She had poor tolerance for Prolia. It will require ongoing monitoring due to the aromatase inhibitor therapy. Signed By: Laith Rose M.D. <<Signature on File>>
== END 2021-02-23 14:14 | disposition home or self-care (01) ==
LOC: ONCMED 14:18
PROVIDERS: PCP Student in an Organized Health Care Education/Training Program; Visit Provider Internal Medicine Medical Oncology
DX: C50.211 Malignant neoplasm of upper-inner quadrant of right female breast (principal); Z17.0 Estrogen receptor positive status [ER+]; M85.80 Other specified disorders of bone density and structure, unspecified site; Z79.811 Long term (current) use of aromatase inhibitors; Z79.899 Other long term (current) drug therapy; Z90.11 Acquired absence of right breast and nipple
CPT/HCPCS: 36415; 83540; 83550; 85025; 99214

== ENCOUNTER 2021-10-01 11:04 | Outpatient (CLI) | payer MEDICARE, OTHER, SELFPAY ==
[2021-10-01 11:40] LABS: Basophils % 0.8 %; Eosinophils # 0.1 10^3/uL (0.0-0.8); Eosinophils % 2.9 %; Hematocrit 37.9 % (37.0-47.0); Hemoglobin 11.1 g/dL (11.5-15.3); Lymphocytes # 1.1 10^3/uL (0.8-4.8); Lymphocytes % 28.8 %; Mean Corpuscular HGB Conc 29.3 g/dL (30.0-36.0); Mean Corpuscular Hemoglobin 25.1 pg (28.0-34.0); Mean Corpuscular Volume 85.7 fl (81-99); Mean Platelet Volume 11.4 fL (7.4-10.4); Monocytes # 0.3 10^3/uL (0.2-0.9); Monocytes % 9.1 %; Neutrophils # 2.18 10^3/uL (1.8-7.7); Neutrophils % 58.1 %; Nucleated Red Blood Cells % 0 %; Platelet Count 187 10^3/cmm (130-400); Red Blood Count 4.42 10^6/uL (4.1-5.3); Red Cell Distribution Width 16.8 % (12.1-15.1); White Blood Count 3.8 10^3/uL (4.0-10.0)
[2021-10-01 11:59] LABS: Alanine Aminotransferase 16 U/L (0-33); Alkaline Phosphatase 91 IU/L (35-105); Anion Gap 13.2 (5-19); Aspartate Amino Transferase 22 U/L (0-32); Blood Urea Nitrogen 15 mg/dL (8-23); Calcium 9.8 mg/dL (8.5-10.5); Carbon Dioxide 28 mmol/L (22-29); Chloride 101 mmol/L (98-107); Globulin 2.5 g/dL (1.3-4.6); Glucose 115 mg/dL (65-115); Osmolality Calculated 288 mOsm/kg (285-295); Potassium 4.2 mmol/L (3.5-5.1); Sodium 138 mmol/L (136-145); Total Bilirubin 0.2 mg/dL (0.15-1.2); Total Protein 6.5 g/dL (6.6-8.7)
[2021-10-01 12:15] LABS: 25 Hydroxy Vitamin D 49 ng/mL (30-100)
[2021-10-01 13:51] LABS: Iron 31 ug/dL (37-145); Percent Saturation 8.7 % (20-50); Total Iron Binding Capacity 355 mcg/dl; Unsaturated Iron Binding 324 ug/dL (112-347)
--- NOTE | 2021-10-01 17:10 | ONC FU_ITS ---
Dr. Rose Patient Follow-Up Note Patient: Jesenia Tripathi Unit #: [id number]: [id number] Dicatated By: Laith Rose M.D.Date of Visit:Oct 01, 2021 Onc Med Follow-up/Prog Note Chief Complaint: Breast cancer. History of Present Illness: This is a 71 year-old woman with grade 1 invasive ductal carcinoma of the right breast, by clinical evaluation stage IA, ER/HI positive and HER-2/teo negative. She had presented with an abnormal screening mammogram of the right breast. A unilateral right diagnostic mammogram with additional views of the right breast on 05/01/2019 was BI-RADS 4, suspicious. Findings included a very small persistent focal asymmetry at the upper inner right breast. Ultrasound showed a 4 mm hypoechoic lesion. Biopsy was recommended. She was referred to Dr. Brand and on 05/22/2019 she underwent ultrasound directed needle core biopsy of the right breast lesion. Pathology showed grade 1 invasive ductal carcinoma measuring 4 mm. There was no associated DCIS. The margins were noted to be free of tumor. The breast prognostic profile showed ER positive at 86% and HI positive at 47%. It was negative for overexpression of HER-2/teo, 0+ by IHC and amplification ratio by FISH of 0.9 with 1.9 HER-2 copies/cell. The Ki-67 was favorable at 9%. Given her age, underlying medical illnesses, the small size of the tumor, and the favorable prognostic and with a clinically negative axilla, she was recommended to undergo lumpectomy without axillary lymph node sampling. She then underwent right breast quandrantectomy on 06/12/2019. Pathology showed no residual tumor. Following the surgery she was seen by a medical oncologist in [place], and she was recommended to have an axillary sentinel lymph node biopsy. As she was not enthusiastic about having any additional surgery, she was seen here for a second opinion. I had seen her initially on 07/18/2019. She was advised that an axillary sentinel lymph node biopsy would be considered standard of care, but in view of the very small size of her primary tumor, I felt that it was acceptable to limit her further treatment to adjuvant hormonal therapy with an aromatase inhibitor. She then began treatment with anastrozole 1 mg daily. As she was found to have osteopenia by DEXA scan, she also had started treatment with Prolia for bone health. However, she had side effects following the initial injection, and she received no further treatment. Her other medical illnesses including hypertension, hyperlipidemia, peripheral arterial disease, chronic kidney disease, COPD, degenerative arthritis, and rheumatoid arthritis. She has a history of peptic ulcer disease with associated GI bleeding, and she is known to have an atrophic left kidney. She has undergone endovascular repair of abdominal aortic aneurysm and right renal artery stent placement, and she has a history of thyroid cancer. She was diagnosed with COVID-19 virus infection in May 2020. She has a history of smoking 1 pack of cigarettes daily for 60 years. She is seen for a follow-up visit. She has been feeling pretty good generally, though she does complain that her arthritis has been flaring up, mainly in her back and feet. Her activity has been somewhat limited. Her ECOG score is 1. Her appetite is okay, but she says that food does not really taste good. By our scale she has had a 15 pound weight loss. She does not have fever, but she does tend to have sweating in the middle of the night. She has allergy related sinus symptoms and recently she has had sore throat. She has a cigarette cough. Her breathing is a little labored. She does not complain of chest pain. She was having a lot of nausea, but that has improved significantly after stopping potassium and magnesium supplements. She has no other GI complaints. Bladder function has been okay, though she thinks she has not been voiding as much. She has been having spasms/jerking when she lies down at night, starting in the thighs and extending upwards to her mid and upper back. She does not complain of headache or dizziness, and she has no focal neurologic symptoms. Medications: Anastrozole (1 mg) Oral daily, Bystolic 1 Tablet (of 10 mg) Oral daily, Centrum Silver 1 Tablet Oral daily, Clopidogrel Bisulfate 1 Tablet (of 75 mg) Oral daily, Co Q 10 1 Capsule (of 100 mg) Oral daily, Levothyroxine Sodium 1 Tablet (of 112 mcg) Oral daily, Olmesartan Medoxomil 1 Tablet (of 20 mg) Oral b.i.d., Rosuvastatin Calcium 1 Tablet (of 20 mg) Oral daily, Spironolactone 1 Tablet (of 25 mg) Oral daily, traMADol HCl 1 Tablet (of 50 mg) Oral daily Allergies: keflex Vital Signs: Performed on Oct 01, 2021 13:15 Height - 66.75 in Weight - 137.6 lbs (LOW) BSA - 1.72 sq.m BMI - 21.71 Temperature - 97.6 F (LOW) Pulse - 67 /min Respiration - 16 /min BP - 169/76 mm(hg) (HIGH) O2 Sat - 93 % (LOW) Pain - 0 Fatigue - 4 Physical Examination: Constitutional - She looks pretty good generally, Eyes - Sclerae nonicteric. Conjunctivae clear, ENMT - No lesions noted in the oral cavity, Hematologic/Lymphatic - No cervical, clavicular, or axillary adenopathy, Respiratory - Lungs sound clear with diminished air movement bilaterally, Cardiovascular - Heart rhythm is regular. There is a II/ systolic no murmur. There is no gallop or rub noted, Abdomen - Soft. Liver and spleen are not enlarged. There is no abdominal mass or ascites noted and there is no inguinal adenopathy, Extremities - No edema, Neurologic - No focal neurologic deficits noted. Lab/Imaging: Test performed on Oct 01, 2021 11:30 Iron 31 mcg/dL Sodium 138 mmol/L Vitamin D (25-Hydroxy), Total 49 ng/mL Iron Binding Capacity (TIBC) 355 mcg/dl Potassium 4.2 mmol/L % Iron Saturation 8.7 % Chloride 101 mmol/L CO2 28 mmol/L UIBC 324 mcg/dL Anion Gap 13.2 BUN 15 mg/dL Creatinine 1.1 mg/dL Cr Clearance (Est) 44.88 mL/min Glucose 115 mg/dL Osmolality - Calculated 288 mOsm/kg Calcium 9.8 mg/dL Protein, Total 6.5 g/dL Albumin 4.0 g/dL Globulin 2.5 g/dL Bilirubin, Total 0.2 mg/dL ALT (SGPT) 16 U/L AST (SGOT) 22 U/L Alkaline Phosphatase 91 IU/L WBC 3.8 10 3/uL RBC 4.42 10 6/uL HGB 11.1 g/dL HCT 37.9 % MCV 85.7 fl MCH 25.1 pg MCHC 29.3 g/dL RDW 16.8 % Platelet Count 187 10 3/cmm MPV 11.4 fL Neutrophils 2.18 10 3/uL Lymphocytes 1.1 10 3/uL Monocytes 0.3 10 3/uL Eosinophils 0.1 10 3/uL Basophils 0.0 10 3/uL Neutrophil % 58.1 % Lymphocyte % 28.8 % Monocyte % 9.1 % Eosinophil % 2.9 % Basophils % 0.8 % NRBC % 0 % Problem List: 1. Grade 1 invasive ductal carcinoma of the right breast, by clinical evaluation stage IA (T1a, N0, M0), ER/HI positive and HER-2/teo negative. 2. She underwent core needle biopsy of the right breast on 05/22/2019 followed by right breast quadrantectomy on 06/12/2019. The latter showed no residual tumor. She delcined axillary node sampling. Due to the small size of her primary tumor, her further treatment was limited to adjuvant hormonal therapy with anastrozole. 3. Hypertension. 4. Hyperlipidemia. 5. Chronic kidney disease. 6. She has undergone endovascular repair of abdominal aortic aneurysm and right renal artery stent placement. 7. She has bilateral carotid bruits. 8. COPD. 9. Peptic ulcer disease wtih associated GI bleeding. 10. Rheumatoid arthritis. 11. Degenerative disease of the spine. 12. She has an atrophic left kidney. 13. She has a history of thyroid cancer. 14. She was given Prolia on 08/02/2019 for osteopenia. She tolerated it poorly. Problems Addressed with this Encounter and Plan: 1. Patient with grade 1 invasive ductal carcinoma of the right breast, by clinical evaluation stage IA (T1a, N0, M0), ER/HI positive and HER-2/teo negative. She underwent core needle biopsy of the right breast on 05/22/2019 followed by right breast quadrantectomy on 06/12/2019. She delcined axillary node sampling. Due to the small size of her primary tumor, her further treatment was limited to adjuvant hormonal therapy with anastrozole 1 mg daily. During follow-up she has had ongoing complaints of musculoskeletal pain. It is uncertain to what extent it may be due to the anastrozole. Thus far it remains tolerable. In the absence of any evidence of recurrence of the breast cancer, she will continue adjuvant hormonal therapy with anastrozole 1 mg daily. I will see her again in 6 months, or sooner as needed. 2. She has iron deficiency anemia. She will start on oral iron supplementation. If she does not tolerated or have adequate response, she will be given the option to have parenteral iron replacement. In the meantime, she is also recommended to have stool Hemoccult testing. 3. Osteopenia. She had poor tolerance for Prolia. Her repeat DEXA scan continue to show osteopenia, not significantly worse. It is being followed expectantly. Signed By: Laith Rose M.D. <<Signature on File>>
== END 2021-10-01 11:05 | disposition home or self-care (01) ==
PROVIDERS: PCP Student in an Organized Health Care Education/Training Program; Visit Provider Internal Medicine Medical Oncology
DX: C50.811 Malignant neoplasm of overlapping sites of right female breast (principal); Z17.0 Estrogen receptor positive status [ER+]; Z79.811 Long term (current) use of aromatase inhibitors; E55.9 Vitamin D deficiency, unspecified; E78.5 Hyperlipidemia, unspecified; I12.9 Hypertensive chronic kidney disease with stage 1 through stage 4 chronic kidney disease, or unspecified chronic kidney disease; N18.9 Chronic kidney disease, unspecified; I71.4 Abdominal aortic aneurysm, without rupture; R09.89 Other specified symptoms and signs involving the circulatory and respiratory systems; J44.9 Chronic obstructive pulmonary disease, unspecified; K25.4 Chronic or unspecified gastric ulcer with hemorrhage; M06.9 Rheumatoid arthritis, unspecified; M47.9 Spondylosis, unspecified; Z85.850 Personal history of malignant neoplasm of thyroid; D50.9 Iron deficiency anemia, unspecified; M85.80 Other specified disorders of bone density and structure, unspecified site; Z79.899 Other long term (current) drug therapy
CPT/HCPCS: 80053; 82306; 83540; 83550; 85025; 99214

== ENCOUNTER 2022-04-22 10:54 | Oncology outpatient (recurring) (ONCR) | payer MEDICARE, OTHER, SELFPAY ==
[2022-04-22 11:18] LABS: Basophils % 0.7 %; Eosinophils # 0.2 10^3/uL (0.0-0.8); Eosinophils % 3.3 %; Hematocrit 37.2 % (37.0-47.0); Hemoglobin 10.9 g/dL (11.5-15.3); Lymphocytes # 1.5 10^3/uL (0.8-4.8); Lymphocytes % 27.5 %; Mean Corpuscular HGB Conc 29.3 g/dL (30.0-36.0); Mean Corpuscular Hemoglobin 25.2 pg (28.0-34.0); Mean Corpuscular Volume 86.1 fl (81-99); Mean Platelet Volume 12.3 fL (7.4-10.4); Monocytes # 0.4 10^3/uL (0.2-0.9); Monocytes % 6.6 %; Neutrophils # 3.34 10^3/uL (1.8-7.7); Neutrophils % 61.7 %; Nucleated Red Blood Cells % 0 %; Platelet Count 160 10^3/cmm (130-400); Red Blood Count 4.32 10^6/uL (4.1-5.3); Red Cell Distribution Width 16.4 % (12.1-15.1); White Blood Count 5.4 10^3/uL (4.0-10.0)
[2022-04-22 11:39] LABS: Alanine Aminotransferase 13 U/L (0-33); Albumin Level 4.1 g/dL (3.5-5.2); Alkaline Phosphatase 97 U/L (35-105); Anion Gap 12.9 (5-19); Aspartate Amino Transferase 22 U/L (0-32); Blood Urea Nitrogen 14 mg/dL (8-23); Calcium 9.8 mg/dL (8.5-10.5); Carbon Dioxide 30 mmol/L (22-29); Chloride 101 mmol/L (98-107); Globulin 2.9 g/dL (1.3-4.6); Glucose 113 mg/dL (65-115); Iron 50 ug/dL (37-145); Osmolality Calculated 291 mOsm/kg (285-295); Percent Saturation 12.3 % (20-50); Potassium 3.9 mmol/L (3.5-5.1); Sodium 140 mmol/L (136-145); Total Bilirubin 0.4 mg/dL (0.15-1.2); Total Iron Binding Capacity 404 mcg/dl; Unsaturated Iron Binding 354 ug/dL (112-347)
== END 2022-05-03 23:59 | disposition home or self-care (01) ==
PROVIDERS: PCP Student in an Organized Health Care Education/Training Program; Visit Provider Internal Medicine Medical Oncology
DX: C50.212 Malignant neoplasm of upper-inner quadrant of left female breast (principal); C50.211 Malignant neoplasm of upper-inner quadrant of right female breast; Z17.0 Estrogen receptor positive status [ER+]; F17.210 Nicotine dependence, cigarettes, uncomplicated; Z79.811 Long term (current) use of aromatase inhibitors; M85.80 Other specified disorders of bone density and structure, unspecified site; D50.8 Other iron deficiency anemias
CPT/HCPCS: 36415; 80053; 83540; 83550; 85025; 99214

== ENCOUNTER 2022-10-26 11:35 | Oncology outpatient (recurring) (ONCR) | payer MEDICARE, OTHER, SELFPAY ==
[2022-10-26 12:15] LABS: Basophils # 0.1 10^3/uL (0.0-0.1); Basophils % 1.1 %; Eosinophils # 0.3 10^3/uL (0.0-0.8); Eosinophils % 5.5 %; Hematocrit 41.8 % (37.0-47.0); Hemoglobin 13.1 g/dL (11.5-15.3); Lymphocytes # 1.4 10^3/uL (0.8-4.8); Lymphocytes % 24.6 %; Mean Corpuscular HGB Conc 31.3 g/dL (30.0-36.0); Mean Corpuscular Volume 102.2 fl (81-99); Mean Platelet Volume 11.2 fL (7.4-10.4); Monocytes # 0.4 10^3/uL (0.2-0.9); Monocytes % 7.5 %; Neutrophils # 3.36 10^3/uL (1.8-7.7); Neutrophils % 61.3 %; Nucleated Red Blood Cells % 0 %; Platelet Count 214 10^3/cmm (130-400); Red Blood Count 4.09 10^6/uL (4.1-5.3); Red Cell Distribution Width 13.6 % (12.1-15.1); White Blood Count 5.5 10^3/uL (4.0-10.0)
[2022-10-26 12:32] LABS: Alanine Aminotransferase 13 U/L (0-33); Albumin Level 4.2 g/dL (3.5-5.2); Alkaline Phosphatase 90 U/L (35-105); Anion Gap 14.3 (5-19); Aspartate Amino Transferase 17 U/L (0-32); Blood Urea Nitrogen 13 mg/dL (8-23); Calcium 9.3 mg/dL (8.5-10.5); Carbon Dioxide 29 mmol/L (22-29); Chloride 103 mmol/L (98-107); Ferritin 60 ng/mL (15-150); Globulin 2.3 g/dL (1.3-4.6); Glucose 105 mg/dL (65-115); Iron 99 ug/dL (37-145); Lactate Dehydrogenase 171 U/L (135-214); Osmolality Calculated 294 mOsm/kg (285-295); Percent Saturation 33.7 % (20-50); Potassium 4.3 mmol/L (3.5-5.1); Sodium 142 mmol/L (136-145); Total Bilirubin 0.4 mg/dL (0.15-1.2); Total Iron Binding Capacity 293 mcg/dl; Total Protein 6.5 g/dL (6.6-8.7); Unsaturated Iron Binding 194 ug/dL (112-347)
== END 2022-10-31 23:59 | disposition home or self-care (01) ==
PROVIDERS: PCP Family Medicine; Visit Provider Internal Medicine Medical Oncology
DX: C50.812 Malignant neoplasm of overlapping sites of left female breast (principal); C50.811 Malignant neoplasm of overlapping sites of right female breast; Z17.0 Estrogen receptor positive status [ER+]; F17.210 Nicotine dependence, cigarettes, uncomplicated; Z79.811 Long term (current) use of aromatase inhibitors; M85.89 Other specified disorders of bone density and structure, multiple sites; D50.9 Iron deficiency anemia, unspecified; M54.9 Dorsalgia, unspecified; M25.561 Pain in right knee; Z79.899 Other long term (current) drug therapy
CPT/HCPCS: 36415; 80053; 82728; 83540; 83550; 83615; 85025; 99214

== ENCOUNTER 2023-04-28 11:28 | Oncology outpatient (recurring) (ONCR) | payer MEDICARE, OTHER, SELFPAY ==
[2023-04-28 11:37] VITALS: BP 154/72; PULSE 60; RESP 17; TEMP 36.9; O2SAT 96
[2023-04-28 11:59] LABS: Basophils % 0.6 %; Eosinophils # 0.2 10^3/uL (0.0-0.8); Eosinophils % 4.2 %; Hematocrit 42.1 % (36-47); Lymphocytes # 1.3 10^3/uL (0.8-4.8); Lymphocytes % 25.9 %; Mean Corpuscular HGB Conc 32.1 g/dL (30-55); Mean Corpuscular Hemoglobin 30.5 pg (27-33); Mean Platelet Volume 11.6 fL (7.4-10.4); Monocytes # 0.4 10^3/uL (0.2-0.9); Monocytes % 7.8 %; Neutrophils # 3.08 10^3/uL (1.8-7.7); Neutrophils % 61.5 %; Nucleated Red Blood Cells % 0 %; Platelet Count 187 10^3/cmm (157-399); Red Blood Count 4.43 10^6/uL (3.85-5.65); Red Cell Distribution Width 14.1 % (12.1-15.1); White Blood Count 5.01 10^3/uL (3.29-11.43)
[2023-04-28 12:15] LABS: Alanine Aminotransferase 10 U/L (0-33); Albumin Level 4.4 g/dL (3.5-5.2); Alkaline Phosphatase 86 U/L (35-105); Anion Gap 14.4 (5-19); Aspartate Amino Transferase 16 U/L (0-32); Blood Urea Nitrogen 14 mg/dL (8-23); Calcium 9.9 mg/dL (8.5-10.5); Carbon Dioxide 27 mmol/L (22-29); Chloride 104 mmol/L (98-107); Ferritin 18 ng/mL (15-150); Globulin 2.4 g/dL (1.3-4.6); Glucose 104 mg/dL (65-115); Iron 63 ug/dL (37-145); Osmolality Calculated 293 mOsm/kg (285-295); Percent Saturation 18.7 % (20-50); Potassium 4.4 mmol/L (3.5-5.1); Sodium 141 mmol/L (136-145); Total Bilirubin 0.5 mg/dL (0.15-1.2); Total Iron Binding Capacity 336 mcg/dl; Total Protein 6.8 g/dL (6.6-8.7); Unsaturated Iron Binding 273 ug/dL (112-347)
== END 2023-05-03 23:59 | disposition home or self-care (01) ==
PROVIDERS: PCP Family Medicine; Visit Provider Internal Medicine Medical Oncology
DX: C50.212 Malignant neoplasm of upper-inner quadrant of left female breast (principal); C50.211 Malignant neoplasm of upper-inner quadrant of right female breast; Z17.0 Estrogen receptor positive status [ER+]; F17.210 Nicotine dependence, cigarettes, uncomplicated; Z79.811 Long term (current) use of aromatase inhibitors; M85.80 Other specified disorders of bone density and structure, unspecified site; D50.8 Other iron deficiency anemias
CPT/HCPCS: 36415; 80053; 82728; 83540; 83550; 85025; 99213

== ENCOUNTER 2023-09-30 11:43 | Outpatient (CLI) | payer MEDICARE, OTHER, SELFPAY ==
--- NOTE | 2023-09-30 13:00 | XR_ITS ---
WS: [id number] DEXA (DUAL ENERGY X-RAY ABSORPTIOMETRY) Bone mineral density was performed using a [employer] machine. HISTORY: aromatase inhibitor use COMPARISON: None available. Left forearm BMD: 0.760 g/cm2. T score: -1.3 Z score: 0.9 Total hip BMD: Left: 0.731 g/cm2. T score: -2.2 Z score: -0.5 Right: 0.674 g/cm2. T score: -2.7 Z score: -1.0 10 year probability of a major osteoporotic fracture is 20.5%. IMPRESSION: OSTEOPOROSIS based upon the WHO classification for females.
== END 2023-09-30 11:44 | disposition home or self-care (01) ==
LOC: RAD 11:44
PROVIDERS: PCP Family Medicine; Visit Provider Nurse Practitioner Family
DX: M81.0 Age-related osteoporosis without current pathological fracture (principal); Z79.811 Long term (current) use of aromatase inhibitors
CPT/HCPCS: 77080

== ENCOUNTER 2023-10-27 11:18 | Oncology outpatient (recurring) (ONCR) | payer MEDICARE, OTHER, SELFPAY ==
[2023-10-27 11:41] LABS: Basophils % 0.7 %; Eosinophils # 0.3 10^3/uL (0.0-0.8); Eosinophils % 5.1 %; Hematocrit 45.5 % (36-47); Lymphocytes # 1.5 10^3/uL (0.8-4.8); Lymphocytes % 27.9 %; Mean Corpuscular HGB Conc 32.5 g/dL (30-55); Mean Corpuscular Hemoglobin 31.6 pg (27-33); Mean Corpuscular Volume 97.2 fl (85-98); Mean Platelet Volume 11.4 fL (7.4-10.4); Monocytes # 0.4 10^3/uL (0.2-0.9); Monocytes % 7.7 %; Neutrophils # 3.18 10^3/uL (1.8-7.7); Neutrophils % 58.4 %; Nucleated Red Blood Cells % 0 %; Platelet Count 154 10^3/cmm (157-399); Red Blood Count 4.68 10^6/uL (3.85-5.65); Red Cell Distribution Width 13.5 % (12.1-15.1); White Blood Count 5.45 10^3/uL (3.29-11.43)
[2023-10-27 12:02] LABS: Alanine Aminotransferase 15 U/L (0-33); Albumin Level 4.2 g/dL (3.5-5.2); Alkaline Phosphatase 95 U/L (35-105); Anion Gap 10.5 (5-19); Aspartate Amino Transferase 25 U/L (0-32); Blood Urea Nitrogen 20 mg/dL (8-23); Calcium 9.2 mg/dL (8.5-10.5); Carbon Dioxide 32 mmol/L (22-29); Chloride 104 mmol/L (98-107); Ferritin 32 ng/mL (15-150); Globulin 2.3 g/dL (1.3-4.6); Glucose 111 mg/dL (65-115); Iron 162 ug/dL (37-145); Osmolality Calculated 297 mOsm/kg (285-295); Percent Saturation 49.2 % (20-50); Potassium 4.5 mmol/L (3.5-5.1); Sodium 142 mmol/L (136-145); Total Bilirubin 0.5 mg/dL (0.15-1.2); Total Iron Binding Capacity 329 mcg/dl; Total Protein 6.5 g/dL (6.6-8.7); Unsaturated Iron Binding 167 ug/dL (112-347)
[2023-10-27 16:05] LABS: 25 Hydroxy Vitamin D 44 ng/mL (30-100)
== END 2023-11-01 23:59 | disposition home or self-care (01) ==
PROVIDERS: Nurse Practitioner Family; PCP Family Medicine; Visit Provider Internal Medicine Medical Oncology
DX: Z17.0 Estrogen receptor positive status [ER+]; F17.210 Nicotine dependence, cigarettes, uncomplicated; Z79.811 Long term (current) use of aromatase inhibitors; M85.80 Other specified disorders of bone density and structure, unspecified site; D50.8 Other iron deficiency anemias; M81.0 Age-related osteoporosis without current pathological fracture; C50.911 Malignant neoplasm of unspecified site of right female breast
CPT/HCPCS: 36415; 80053; 82306; 82728; 83540; 83550; 85025; 99214

== ENCOUNTER 2024-05-03 12:08 | Oncology outpatient (recurring) (ONCR) | payer MEDICARE, OTHER, SELFPAY ==
[2024-05-03 13:00] LABS: Basophils % 0.7 %; Eosinophils # 0.2 10^3/uL (0.0-0.8); Hematocrit 46.8 % (36-47); Lymphocytes # 1.1 10^3/uL (0.8-4.8); Lymphocytes % 20.6 %; Mean Corpuscular HGB Conc 32.1 g/dL (30-55); Mean Corpuscular Hemoglobin 31.8 pg (27-33); Mean Corpuscular Volume 99.2 fl (85-98); Mean Platelet Volume 11.5 fL (7.4-10.4); Monocytes # 0.4 10^3/uL (0.2-0.9); Monocytes % 6.5 %; Neutrophils # 3.72 10^3/uL (1.8-7.7); Nucleated Red Blood Cells % 0 %; Platelet Count 141 10^3/cmm (157-399); Red Blood Count 4.72 10^6/uL (3.85-5.65); Red Cell Distribution Width 13.2 % (12.1-15.1); White Blood Count 5.39 10^3/uL (3.29-11.43)
[2024-05-03 13:18] LABS: Alanine Aminotransferase 12 U/L (0-33); Albumin Level 4.3 g/dL (3.5-5.2); Alkaline Phosphatase 75 U/L (35-105); Anion Gap 12.4 (5-19); Aspartate Amino Transferase 17 U/L (0-32); Blood Urea Nitrogen 18 mg/dL (8-23); Carbon Dioxide 31 mmol/L (22-29); Chloride 100 mmol/L (98-107); Ferritin 45 ng/mL (15-150); Globulin 2.4 g/dL (1.3-4.6); Glucose 99 mg/dL (65-115); Iron 96 ug/dL (37-145); Osmolality Calculated 290 mOsm/kg (285-295); Percent Saturation 28.1 % (20-50); Potassium 4.4 mmol/L (3.5-5.1); Sodium 139 mmol/L (136-145); Total Bilirubin 0.7 mg/dL (0.15-1.2); Total Iron Binding Capacity 341 mcg/dl; Total Protein 6.7 g/dL (6.6-8.7); Unsaturated Iron Binding 245 ug/dL (112-347)
[2024-05-03 13:21] LABS: Creatinine Clr Calc Pharmacy 29.5946
== END 2024-05-03 23:59 | disposition home or self-care (01) ==
PROVIDERS: Nurse Practitioner Family; PCP Family Medicine; Visit Provider Internal Medicine Medical Oncology
DX: Z17.0 Estrogen receptor positive status [ER+]; Z79.811 Long term (current) use of aromatase inhibitors; M81.0 Age-related osteoporosis without current pathological fracture; D50.8 Other iron deficiency anemias; C50.911 Malignant neoplasm of unspecified site of right female breast
CPT/HCPCS: 36415; 80053; 82728; 83540; 83550; 85025; 99213

== ENCOUNTER 2024-10-30 11:20 | Oncology outpatient (recurring) (ONCR) | payer MEDICARE, OTHER, SELFPAY ==
[2024-10-30 11:49] LABS: Basophils # 0.1 10^3/uL (0.0-0.1); Basophils % 0.6 %; Eosinophils # 0.1 10^3/uL (0.0-0.8); Eosinophils % 1.5 %; Hematocrit 44.7 % (36-47); Lymphocytes # 1.2 10^3/uL (0.8-4.8); Lymphocytes % 15.6 %; Mean Corpuscular HGB Conc 32.7 g/dL (30-55); Mean Corpuscular Hemoglobin 32.6 pg (27-33); Mean Corpuscular Volume 99.8 fl (85-98); Monocytes # 0.4 10^3/uL (0.2-0.9); Monocytes % 5.5 %; Neutrophils % 76.5 %; Nucleated Red Blood Cells % 0 %; Platelet Count 144 10^3/cmm (157-399); Red Blood Count 4.48 10^6/uL (3.85-5.65); Red Cell Distribution Width 13.5 % (12.1-15.1); White Blood Count 7.84 10^3/uL (3.29-11.43)
[2024-10-30 12:07] LABS: Alanine Aminotransferase 10 U/L (0-33); Albumin Level 4.2 g/dL (3.5-5.2); Alkaline Phosphatase 83 U/L (35-105); Anion Gap 14.3 (5-19); Aspartate Amino Transferase 18 U/L (0-32); Blood Urea Nitrogen 18 mg/dL (8-23); Calcium 10.1 mg/dL (8.5-10.5); Carbon Dioxide 28 mmol/L (22-29); Chloride 102 mmol/L (98-107); Creatinine Clr Calc Pharmacy 34.8689; Globulin 2.7 g/dL (1.3-4.6); Glucose 109 mg/dL (65-115); Osmolality Calculated 292 mOsm/kg (285-295); Potassium 4.3 mmol/L (3.5-5.1); Sodium 140 mmol/L (136-145); Total Bilirubin 0.7 mg/dL (0.15-1.2); Total Protein 6.9 g/dL (6.6-8.7)
== END 2024-10-31 23:59 | disposition home or self-care (01) ==
PROVIDERS: Nurse Practitioner Family; PCP Family Medicine; Visit Provider Internal Medicine Medical Oncology
DX: C50.911 Malignant neoplasm of unspecified site of right female breast (principal); Z17.0 Estrogen receptor positive status [ER+]; F17.210 Nicotine dependence, cigarettes, uncomplicated; R03.0 Elevated blood-pressure reading, without diagnosis of hypertension; D50.8 Other iron deficiency anemias; Z79.811 Long term (current) use of aromatase inhibitors; M81.0 Age-related osteoporosis without current pathological fracture
CPT/HCPCS: 36415; 80053; 85025; 99214